=== PATIENT | female | born 1990 ===

== ENCOUNTER 2018-03-08 03:55 | Emergency (ER) | payer OTHER ==
[2018-03-08 04:10] VITALS: TEMP 99.1
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
[2018-03-08 05:57] VITALS: BP 120/80; PULSE 77; RESP 21
[2018-03-13 01:13] VITALS: O2SAT 99
== END 2018-03-08 05:50 | disposition home or self-care (01) ==
LOC: H.ER 03:55
DX: F41.9 Anxiety disorder, unspecified (principal)